=== PATIENT | female | born 1960 | race Caucasian/White ===

== ENCOUNTER → 2017-06-17 | Outpatient (CLI) | payer OTHER ==
[~2017-06-17] MED LIST: ALLEGRA180 MG PO; CELEXA40 MG PO; CYCLOBENZAPRINE10 MG PO; ENDOCET 5-3251 EACH PO; FINACEA 15% GEL50 GM TP; FLUTICASONE PRO16 GM BOTH NARES; HYDROCODON-ACE1 EAC7 PO; IBUPROFEN400 MG PO; LEXAPRO20 MG PO; LYRICA50 MG PO; OXYCODONE HCL10 MG PO; OXYCODONE-ACET1 EACH PO; PEPCID20 MG PO; ZYRTEC10 M3 PO
== END | disposition home or self-care (01) ==
LOC: RAD 09:56
DX: K76.0 Fatty (change of) liver, not elsewhere classified (principal); R16.0 Hepatomegaly, not elsewhere classified; I70.0 Atherosclerosis of aorta; M47.899 Other spondylosis, site unspecified; E27.8 Other specified disorders of adrenal gland; R91.8 Other nonspecific abnormal finding of lung field; Z90.49 Acquired absence of other specified parts of digestive tract; Z98.1 Arthrodesis status; R79.89 Other specified abnormal findings of blood chemistry
CPT/HCPCS: 74177